=== PATIENT | male | born 1980 | race Caucasian/White ===

== ENCOUNTER 2016-03-23 09:43 | Emergency (ER) | payer BC ==
[~2016-03-23] VITALS: Ht 190.5 cm; Wt 167.0 kg
[~2016-03-23 09:43] MED LIST: ADDERALL30 MG PO; DURAGESIC100 MCG TD; KEFLEX500 MG PO; NAPROSYN500 MG PO; NEURONTIN300 MG PO; PERCOCET 10/1 TABLET PO; PREDNISONE10 MG PO; TRAMADOL HCL50 MG PO; Ultram PO; VALTREX1000 MG PO; Wellbutrin SR PO
[2016-03-23] MEDS ORDERED: PEPCID20 MG PO (10:45)
[2016-03-23] MEDS ORDERED: PREDNISONE20 MG PO (10:45)
[2016-03-23] MEDS ORDERED: BENADRYL50 MG PO (10:45)
[2016-03-23] MEDS ORDERED: PERCOCET 5/31 TABLET PO (10:46)
[2016-03-23 12:28] VITALS: BP 125/79
== END 2016-03-23 12:30 | disposition home or self-care (01) ==
LOC: EME 09:43
DX: T78.3XXA Angioneurotic edema, initial encounter (principal); K02.9 Dental caries, unspecified; F17.200 Nicotine dependence, unspecified, uncomplicated; Z88.2 Allergy status to sulfonamides; Z88.8 Allergy status to other drugs, medicaments and biological substances
CPT/HCPCS: 99281; 99284; J7512

== ENCOUNTER 2016-08-23 10:26 | Emergency (ER) | payer OTHER ==
[~2016-08-23] VITALS: Ht 190.5 cm; Wt 163.6 kg
[~2016-08-23 10:26] MED LIST changes: +BENADRYL50 MG PO; +PEPCID20 MG PO; +PERCOCET 5/31 TABLET PO; +PREDNISONE20 MG PO
[2016-08-23 10:30] VITALS: BP 148/95
[2016-08-23] MEDS ORDERED: INDOCIN50 MG PO (13:22)
== END 2016-08-23 13:32 | disposition home or self-care (01) ==
LOC: EME 10:26
DX: M10.9 Gout, unspecified (principal); Z88.0 Allergy status to penicillin; F17.200 Nicotine dependence, unspecified, uncomplicated
CPT/HCPCS: 73610; 73630; 93971; 99281; 99283